=== PATIENT | female | born 1995 | race American Indian/Alaskan Native ===

== ENCOUNTER 2017-01-14 20:52 | Emergency (ER) | payer MEDICAID, OTHER ==
[2017-01-14 21:04] VITALS: BMI 23.9
[2017-01-14 21:05] VITALS: RESP 16; TEMP 98.4
[2017-01-14] MEDS ORDERED: Sodium Chloride 0.9% 1,000 ML IV STA (21:27)
--- NOTE | 2017-01-14 21:50 | ED PDOC ---
Arrival/HPI - General Historian: Patient - History of Present Illness Symptom Onset: Gradual Symptom Course: Intermittent <COREEN LESLIE - Last Filed: 01/14/17 22:03> <Tomas Combs DO - Last Filed: 01/15/17 06:26> - General Chief Complaint: Headache Time Seen by Provider: 01/14/17 21:27 - History of Present Illness Narrative History of Present Illness (Text): 01/14/17 21:45 Pt is a 21 yo female complaining of headache and abdominal cramping for the past 24 hours. Pt describes headache as throbbing left sided. She states that she has a prescription for reading glasses for which she has not been using. She rates the headache as a 7/10. She denies any radiation of pain into jaw or vomiting. Pt also complains of bilateral lower abdominal cramping sensation. She reports passing of gas and normal bowel movements throughout. Pt denies fever or vomiting. (COREEN LESLIE) Past Medical History - Provider Review Nursing Documentation Reviewed: Yes - Infectious Disease Hx of Infectious Diseases: None - Tetanus Immunization Tetanus Immunization: Unknown - Past Medical History Past Medical History: No Previous - Psychiatric Hx Depression: No Hx Emotional Abuse: No Hx Physical Abuse: No Hx Substance Use: No - Surgical History Hx Dilation and Curettage: Yes - Anesthesia Hx Anesthesia: Yes Hx Anesthesia Reactions: No Hx Malignant Hyperthermia: No - Suicidal Assessment Feels Threatened In Home Enviroment: No <COREEN LESLIE - Last Filed: 01/14/17 22:03> Family/Social History - Physician Review Nursing Documentation Reviewed: Yes Family/Social History: No Known Family HX Smoking Status: Never Smoked Hx Alcohol Use: Yes Frequency of alcohol use: Socially Hx Substance Use: No <COREEN LESLIE - Last Filed: 01/14/17 22:03> Allergies/Home Meds <COREEN LESLIE - Last Filed: 01/14/17 22:03> <Tomas Combs DO - Last Filed: 01/15/17 06:26> Allergies/Adverse Reactions: Allergies No Known Allergies Allergy (Verified 12/30/13 01:24) Review of Systems - Physician Review All systems were reviewed & negative as marked: Yes - Review of Systems Constitutional: absent: Fevers Eyes: Normal. absent: Vision Changes, Photophobia Gastrointestinal: Abdominal Pain, Nausea. absent: Constipation, Diarrhea, Vomiting Genitourinary Female: Normal. absent: Vaginal Bleeding Musculoskeletal: Normal Skin: Normal Neurological: Headache (left sided temporal ) <COREEN LESLIE - Last Filed: 01/14/17 22:03> Physical Exam Vital Signs Reviewed: Yes - Systems Exam Head: Present: Atraumatic, Normocephalic Pupils: Present: PERRL Extroacular Muscles: Present: EOMI Conjunctiva: Present: Normal Mouth: Present: Moist Mucous Membranes Neck: Present: Normal Range of Motion Respiratory/Chest: Present: Clear to Auscultation, Good Air Exchange. No: Respiratory Distress, Accessory Muscle Use Cardiovascular: Present: Regular Rate and Rhythm, Normal S1, S2. No: Murmurs Abdomen: Present: Tenderness (lower bilateral, R>L), Normal Bowel Sounds. No: Peritoneal Signs, Rebound Back: Present: Normal Inspection Upper Extremity: Present: Normal Inspection. No: Cyanosis, Edema Lower Extremity: Present: Normal Inspection. No: Edema Neurological: Present: GCS=15, CN II-XII Intact, Speech Normal Skin: Present: Warm, Dry, Normal Color. No: Rashes Psychiatric: Present: Alert, Oriented x 3, Normal Insight, Normal Concentration <COREEN LESLIE - Last Filed: 01/14/17 22:03> - PA / PLANT CHANGER / Resident Statement YAHAIRA has reviewed & agrees with the documentation as recorded. YAHAIRA has examined the patient and agrees with the treatment plan. <CORENE LESLIE - Last Filed: 01/14/17 22:03> Disposition/Present on Arrival - Present on Arrival History of DVT/PE: No History of Uncontrolled Diabetes: No Urinary Catheter: No History of Decub. Ulcer: No History Surgical Site Infection Following: None <COREEN LESLIE - Last Filed: 01/14/17 22:03> - Present on Arrival Any Indicators Present on Arrival: No - Disposition Have Diagnosis and Disposition been Completed?: Yes Disposition Time: 23:10 <Tomas Combs DO - Last Filed: 01/15/17 06:26> - Disposition Diagnosis: Gastritis Disposition: HOME/ ROUTINE Condition: IMPROVED Discharge Instructions (ExitCare): Gastritis (ED) Additional Instructions: Thank you for letting us take care of you today. You were treated for abdominal pain. The emergency medical care you received today was directed at your acute symptoms. If you were prescribed any medication, please fill it and take as directed. It may take several days for your symptoms to resolve. Return to the Emergency Department if your symptoms worsen, do not improve, or if you have any other problems. Please contact your doctor or call one of the physicians/clinics you have been referred to that are listed on the Patient Visit Information form that is included in your discharge packet. Bring any paperwork you were given at discharge with you along with any medications you are taking to your follow up visit. Our treatment cannot replace ongoing medical care by a primary care provider (PCP) outside of the emergency department. Thank you for allowing the [facility] team to be part of your care today. Follow up with your doctor in 2-3 days for re-evaluation. Prescriptions: Ranitidine HCl [Zantac] 150 mg PO BID #20 tablet Referrals: Matti Banerjee, [Primary Care Provider] - Follow up with primary Forms: WORK NOTE
[2017-01-14 22:05] LABS: PH,URINE 6.5 (4.7-8.0); URINE BILIRUBIN NEGATIVE (NEGATIVE); URINE BLOOD NEGATIVE (NEGATIVE); URINE GLUCOSE (UA) NEGATIVE (NEGATIVE); URINE LEUKOCYTE ESTERASE NEGATIVE Leu/uL (NEGATIVE); URINE NITRATE NEGATIVE (NEGATIVE); URINE PROTEIN TRACE mg/dL (<30 mg/dL)
[2017-01-14 22:06] LABS: BASO # 0.04 K/mm3 (0.0-2.0); BASO % 0.5 % (0.0-3.0); EOS # 0.4 (0.0-0.7); EOS % 5.1 % (1.5-5.0); GRAN # 4.46 (1.4-6.5); GRAN % 53.1 % (50.0-68.0); HEMOGLOBIN 11.6 gm/dL (12.0-16.0); LYMPH # 2.9 (1.2-3.4); LYMPH % 34.6 % (22.0-35.0); MEAN CELL VOLUME 88.4 fL (80.0-105.0); MEAN CORPUSCULAR HEMOGLOBIN 29.9 pg (25.0-35.0); MEAN CORPUSCULAR HGB CONC 33.8 g/dl (31.0-37.0); MEAN PLATELET VOLUME 9.3 fl (7.0-11.0); MONO # 0.6 (0.1-0.6); MONO % 6.7 % (1.0-6.0); PLATELET COUNT 265 10^3/uL (120.0-450.0); RBC 3.88 10^6/uL (3.5-6.1); RED CELL DISTRIBUTION WIDTH 12.7 % (11.5-14.5); URINE APPEARANCE CLEAR (CLEAR); URINE COLOR YELLOW (YELLOW); WHITE BLOOD COUNT 8.4 10^3/ul (4.5-11.0)
[2017-01-14 22:16] LABS: URINE BACTERIA FEW (NEG); URINE RBC 0 - 2 /hpf (0-2)
[2017-01-14 22:17] LABS: ALB/GLOB RATIO 1.2 (1.1-1.8); ALBUMIN 3.9 g/dL (3.0-4.8); ALT/SGPT 21 U/L (7-56); AST/SGOT 25 U/L (15-39); BLOOD UREA NITROGEN 10 mg/dL (7-21); GFR AFRICAN-AMERICAN > 60; GFR NON-AFRICAN AMERICAN > 60; LIPASE 42 U/L (23-300)
[2017-01-14 23:28] VITALS: BP 106/67; PULSE 100; O2SAT 100
== END 2017-01-15 00:02 | disposition home or self-care (01) ==
LOC: ED 20:52
DX: K29.70 Gastritis, unspecified, without bleeding (principal)
CPT/HCPCS: 80053; 81001; 83690; 85025; 87086; 87181; 96374; 96375; 99285; J1885; J2405; J7040

== ENCOUNTER 2017-06-14 10:22 | Emergency (ER) | payer MEDICAID, OTHER ==
[2017-06-14 11:11] VITALS: RESP 18; TEMP 98.9; O2SAT 100; BMI 25.1
[2017-06-14] MEDS ORDERED: Sodium Chloride 0.9% 1,000 ML IV STA (11:48)
[2017-06-14 12:14] LABS: BASO # 0.03 K/mm3 (0.0-2.0); BASO % 0.4 % (0.0-3.0); EOS # 0.3 (0.0-0.7); EOS % 4.3 % (1.5-5.0); GRAN # 4.49 (1.4-6.5); GRAN % 62.8 % (50.0-68.0); HEMATOCRIT 36.1 % (36.0-48.0); LYMPH # 1.9 (1.2-3.4); LYMPH % 26.5 % (22.0-35.0); MEAN CELL VOLUME 87.6 fl (80.0-105.0); MEAN CORPUSCULAR HEMOGLOBIN 29.4 pg (25.0-35.0); MEAN CORPUSCULAR HGB CONC 33.5 g/dl (31.0-37.0); MEAN PLATELET VOLUME 9.3 fl (7.0-11.0); MONO # 0.4 (0.1-0.6); RED CELL DISTRIBUTION WIDTH 13.1 % (11.5-14.5); WHITE BLOOD COUNT 7.2 10^3/ul (4.5-11.0)
[2017-06-14 12:37] LABS: URINE BILIRUBIN NEGATIVE (NEGATIVE); URINE BLOOD NEGATIVE (NEGATIVE); URINE GLUCOSE (UA) NEGATIVE (NEGATIVE); URINE KETONE NEGATIVE (NEGATIVE); URINE LEUKOCYTE ESTERASE NEGATIVE Leu/uL (NEGATIVE); URINE PROTEIN NEGATIVE mg/dL (<30 mg/dL); URINE UROBILINOGEN 0.2 E.U./dL (<1 E.U./dL)
[2017-06-14 12:38] LABS: INR 1.14 (0.93-1.08)
[2017-06-14 12:39] LABS: PARTIAL THROMBOPLASTIN TIME 28.3 Seconds (25.1-36.5)
[2017-06-14 12:39] LABS: URINE APPEARANCE CLEAR (CLEAR); URINE COLOR YELLOW (YELLOW)
[2017-06-14 13:08] VITALS: BP 102/68; PULSE 78
[2017-06-14 13:12] LABS: ALB/GLOB RATIO 1.2 (1.1-1.8); ALKALINE PHOSPHATASE 62 U/L (38-126); ALT/SGPT 17 U/L (7-56); AST/SGOT 22 U/L (14-36); BILIRUBIN,TOTAL 0.5 mg/dL (0.2-1.3); BLOOD UREA NITROGEN 8 mg/dL (7-21); CALCIUM 9.4 mg/dL (8.4-10.5); CARBON DIOXIDE 21 mmol/L (21-33); CHLORIDE 105 mmol/L (98-107); GFR AFRICAN-AMERICAN > 60; GLUCOSE,RANDOM 91 mg/dL (70-110); POTASSIUM 4.1 mmol/L (3.6-5.0); SODIUM 137 mmol/L (132-148); TOTAL PROTEIN 7.1 g/dL (5.8-8.3)
--- NOTE | 2017-06-14 13:14 | US ---
PROCEDURE: OB Pelvic Ultrasound HISTORY: abdominal pain/ ; last menstrual period is 05/31/2017 suggesting 2 week 0 day estimated gestational age. COMPARISON: None available. TECHNIQUE: Transabdominal and transvaginal pelvic ultrasound were performed for evaluation of gestation. FINDINGS: UTERUS: Within the endometrial cavity containing a gestational sac pole and yolk sac. Positive cardiac activity is detected and there is no definitive hemorrhage related to the decidual reaction which is mildly inhomogeneous but nonfocal. Mean crown-rump length measurement is Gestational sac: Single intrauterine gestation 2.7 mm corresponding to an average ultrasound age of 5 weeks 6 days ; mean sac diameter 2.1 cm. Heart rate: 114 bpm. age (Ultrasound estimated): 5 weeks 6 days Justine-gestational hemorrhage: None. Date of delivery (Ultrasound estimated) : 02/05/2018 Uterus measures 12.5 x 7.3 x 7.8 cm. Normal in size and appearance. CERVIX: Cervix measures 3.0 cm with a closed internal os. Clinical correlation is advised. RIGHT OVARY: Right ovary is not identified however there are no suspicious right adnexal findings at this time. LEFT OVARY: Measures 3.2 x 1.7 x 2.7 cm. No solid mass. Normal flow. No ultrasound evidence of torsion. FREE FLUID: None. OTHER FINDINGS: None. IMPRESSION: A single viable intrauterine gestation identified with average ultrasound age of 5 weeks 6 days which is discrepant from LMP derived dates as discussed above. No definitive decidual reaction related hemorrhage. Clinically correlate further. Right ovary is not identified however there is no suspicious right adnexal finding. Left ovary appears unremarkable. Follow-up ultrasonography can be performed if clinically warranted.
--- NOTE | 2017-06-14 13:29 | ED PDOC ---
Arrival/HPI - General Chief Complaint: Female Genitourinary Time Seen by Provider: 06/14/17 11:25 Historian: Patient - History of Present Illness Narrative History of Present Illness (Text): 06/14/17 13:26 22yo female who present with suprapubic burning intermittent pain x 2days. States her period was suppose to be end of the month, but she bleed briefly yesterday instead. She is . she denies nausea, vomiting, dysuria, current vaginal bleeding, back pain, fever, chills, any other complaint. Past Medical History - Provider Review Nursing Documentation Reviewed: Yes - Infectious Disease Hx of Infectious Diseases: None - Tetanus Immunization Tetanus Immunization: Unknown - Past Medical History Past Medical History: No Previous - Psychiatric Hx Psychophysiologic Disorder: No Hx Substance Use: No - Surgical History Hx Dilation and Curettage: Yes - Anesthesia Hx Anesthesia: Yes Hx Anesthesia Reactions: No Hx Malignant Hyperthermia: No - Suicidal Assessment Feels Threatened In Home Enviroment: No Family/Social History - Physician Review Nursing Documentation Reviewed: Yes Family/Social History: Unknown Family HX Smoking Status: Current Some Days Smoker Hx Alcohol Use: Yes Frequency of alcohol use: Socially Hx Substance Use: No Allergies/Home Meds Allergies/Adverse Reactions: Allergies No Known Allergies Allergy (Verified 06/14/17 11:50) Review of Systems - Physician Review All systems were reviewed & negative as marked: Yes - Review of Systems Constitutional: Normal Eyes: Normal ENT: Normal Respiratory: Normal Cardiovascular: Normal Gastrointestinal: Abdominal Pain. absent: Stool Changes, Constipation, Diarrhea , Nausea, Vomiting, Hematochezia, Hematemesis Genitourinary Female: Normal Musculoskeletal: Normal Skin: Normal Neurological: Normal Endocrine: Normal Hemo/Lymphatic: Normal Psychiatric: Normal Physical Exam Vital Signs Reviewed: Yes Vital Signs Temp Pulse Resp BP Pulse Ox 06/14/17 13:00 78 18 102/68 100 06/14/17 11:10 98.9 F 89 18 100/64 100 Temperature: Afebrile Blood Pressure: Normal Pulse: Regular Respiratory Rate: Normal Appearance: Positive for: Well-Appearing, Non-Toxic, Comfortable Pain Distress: None Mental Status: Positive for: Alert and Oriented X 3 - Systems Exam Head: Present: Atraumatic, Normocephalic Pupils: Present: PERRL Extroacular Muscles: Present: EOMI Conjunctiva: Present: Normal Mouth: Present: Moist Mucous Membranes Neck: Present: Normal Range of Motion Respiratory/Chest: Present: Clear to Auscultation, Good Air Exchange. No: Respiratory Distress, Accessory Muscle Use Cardiovascular: Present: Regular Rate and Rhythm, Normal S1, S2. No: Murmurs Abdomen: Present: Normal Bowel Sounds, Other (soft). No: Tenderness, Distention , Peritoneal Signs, Rebound, Guarding, McBurney's Point Tender, Rovsing's Sign Present Back: Present: Normal Inspection Upper Extremity: Present: Normal Inspection. No: Cyanosis, Edema Lower Extremity: Present: Normal Inspection. No: Edema Neurological: Present: GCS=15, CN II-XII Intact, Speech Normal Skin: Present: Warm, Dry, Normal Color. No: Rashes Psychiatric: Present: Alert, Oriented x 3, Normal Insight, Normal Concentration Medical Decision Making ED Course and Treatment: 06/14/17 13:36 Pt presented for stated history. She was not in any distress. She denied vaginal bleeding in ED. Lab was unremarkable with beta of Blood type was positive Transvaginal US show IUP 5weeks 6days with FHR of 114bpm Rx of vitamin given. She have OB and was advised to f/u with the OB. TRT ED for any new or worsening symptoms - Lab Interpretations Lab Results: 06/14/17 12:00 06/14/17 12:00 Lab Results 06/14/17 12:45: Blood Type Confirm A POSITIVE 06/14/17 12:00: Blood Type A POSITIVE, Antibody Screen Negative, BBK History Checked No verified bt 06/14/17 12:00: Sodium 137, Potassium 4.1, Chloride 105, Carbon Dioxide 21, Anion Gap 15, BUN 8, Creatinine 0.5 L, Est GFR ( Amer) > 60, Est GFR (Non -Af Amer) > 60, Random Glucose 91, Calcium 9.4, Total Bilirubin 0.5, AST 22, ALT 17, Alkaline Phosphatase 62, Total Protein 7.1, Albumin 3.9, Globulin 3.2, Albumin/Globulin Ratio 1.2 06/14/17 12:00: PT 12.6 H, INR 1.14 H, APTT 28.3 06/14/17 12:00: WBC 7.2, RBC 4.12, Hgb 12.1, Hct 36.1, MCV 87.6, MCH 29.4, MCHC 33.5, RDW 13.1, Plt Count 271, MPV 9.3, Gran % 62.8, Lymph % (Auto) 26.5, [place] % (Auto) 6.0, Eos % (Auto) 4.3, Baso % (Auto) 0.4, Gran # 4.49, Lymph # 1.9, [place] # 0.4, Eos # 0.3, Baso # 0.03 06/14/17 11:00: Urine HCG, Qual Positive 06/14/17 11:00: Urine Color Yellow, Urine Appearance Clear, Urine pH 6.0, Ur Specific [place] 1.025, Urine Protein Negative, Urine Glucose (UA) Negative, Urine Ketones Negative, Urine Blood Negative, Urine Nitrate Negative, Urine Bilirubin Negative, Urine Urobilinogen 0.2, Ur Leukocyte Esterase Negative - RAD Interpretation Radiology Orders: 06/14/17 11:47 OB TRANSVAGINAL [US] Stat - Medication Orders Current Medication Orders: Discontinued Medications Sodium Chloride (Sodium Chloride 0.9%) 1,000 mls @ 999 mls/hr IV .Q1H1M STA Stop: 06/14/17 12:48 Last Admin: 06/14/17 12:00 Dose: 999 mls/hr eMAR Start Stop Document 06/14/17 12:00 TONI (Rec: 06/14/17 12:06 TONI [id number]) Intravenous Solution Start Date 06/14/17 Start Time 12:00 End Date 06/14/17 End time 13:00 Total Infusion Time 60 Disposition/Present on Arrival - Present on Arrival Any Indicators Present on Arrival: No History of DVT/PE: No History of Uncontrolled Diabetes: No Urinary Catheter: No History of Decub. Ulcer: No History Surgical Site Infection Following: None - Disposition Have Diagnosis and Disposition been Completed?: Yes Diagnosis: , Abdominal pain Disposition: HOME/ ROUTINE Disposition Time: 13:30 Patient Plan: Discharge Patient Problems: Current Active Problems Problem Status Onset Abdominal pain Acute Acute Condition: STABLE Discharge Instructions (ExitCare): (ED), Abdominal Pain (ED) Additional Instructions: Follow up with a OB Return to ED for any new or worsening Prescriptions: Multivit/Folic Acid/I [ Plus] 1 tab PO DAILY #30 tab Referrals: Tomas Romo DO [Staff Provider] - Follow up with primary Forms: [employer] ([place])
== END 2017-06-14 13:44 | disposition home or self-care (01) ==
LOC: ED 10:22
DX: O26.891 Other specified pregnancy related conditions, first trimester (principal); R10.9 Unspecified abdominal pain; Z3A.01 Less than 8 weeks gestation of pregnancy
CPT/HCPCS: 76817; 80053; 81003; 84702; 84703; 85025; 85610; 85730; 86850; 86900; 96360; 99283; J7040